=== PATIENT | female | born 1985 | race Caucasian/White ===

== ENCOUNTER 2018-09-27 11:35 | Emergency (ER) | payer OTHER ==
[2018-09-27 11:44] VITALS: BP 105/69; PULSE 84; TEMP 98.6; BMI 21.1
--- NOTE | 2018-09-27 12:22 | PDOC ---
History of Present Illness - General Chief Complaint: Pain Stated Complaint: INJURY,FINGER Time Seen by Provider: 09/27/18 12:14 History Source: Patient Exam Limitations: No Limitations - History of Present Illness Initial Comments: 09/27/18 12:19 33 yr female with pain swelling to her left ring finger. Pain started yesterday unknown trauma no fever, skin intact. took aleve with relief. Severity: reports: mild Upper Extremity Pain Location: left: 4th finger Method of Injury: reports: unknown Past History - Past Medical History Allergies/Adverse Reactions: Allergies Allergy/AdvReac Type Severity Reaction Status Date / Time No Known Allergies Allergy Verified 09/27/18 11:44 Home Medications: Ambulatory Orders NK [No Known Home Medication] 10/05/16 COPD: No - Suicide/Smoking/Psychosocial Hx Smoking History: Never smoked Hx Alcohol Use: No Drug/Substance Use Hx: No Substance Use Type: None *Physical Exam - Vital Signs Last Vital Signs Temp Pulse Resp BP Pulse Ox 98.6 F 84 18 105/69 99 09/27/18 11:40 09/27/18 11:40 09/27/18 11:40 09/27/18 11:40 09/27/18 11:40 - Physical Exam General Appearance: Yes: Nourished, Appropriately Dressed HEENT: positive: EOMI, VERNA Extremity: positive: Normal Capillary Refill, Tender (left 4th digit PIP joint , limited extension due to pain), Swelling, Erythema Integumentary: positive: Normal Color, Dry, Warm Neurologic: positive: Fully Oriented, Alert, Normal Mood/Affect, Normal Response , Motor Strength 5/5 Moderate Sedation - Procedure Monitoring Vital Signs: Procedure Monitoring Vital Signs Temperature 98.6 F 09/27/18 11:40 Pulse Rate 84 09/27/18 11:40 Respiratory Rate 18 09/27/18 11:40 Blood Pressure 105/69 09/27/18 11:40 O2 Sat by Pulse Oximetry (%) 99 09/27/18 11:40 Procedures - Splinting Splint Location: Left: Finger (ring ) Pre-Made Type: metal Post-Proc Neuro Vasc Exam: normal ED Treatment Course - RADIOLOGY Radiology Studies Ordered: Category Date Time Status FINGER(S) LEFT [RAD] Stat Radiology 09/27/18 12:16 Ordered Medical Decision Making - Medical Decision Making 09/27/18 12:20 cc: finger pain, swelling started yesterday morning no fever no chills no PMHX skin intact no evidence of any cellulitus will get xray r/o fracture r/o tenosynovitis 09/27/18 13:06 xray is negative, pt given results and a finger splint placed for comfort. pt instructed to see the orthopedist tomorrow for follow up pt understands the importance as pt may have a tendon injury, sprain that needs careful monitoring. *DC/Admit/Observation/Transfer Diagnosis at time of Disposition: Swollen finger, Tendon injury - Discharge Dispostion Disposition: HOME Condition at time of disposition: Good - Referrals Referrals: Lanie Fair [Primary Care Provider] - Faustino Euceda MD [Staff Physician] - - Patient Instructions Additional Instructions: please follow with the orthopedist tomorrow call in the morning and you were seen in the ER for a swollen finger, may be a tendon issue you must have follow up with the specialist to make sure the finger is not getting worse use the splint for comfort - Post Discharge Activity
[2018-09-27] MEDS ORDERED: NAPROXEN 500 MG TABLET (FP) PO ONE (12:51)
[2018-09-27] MEDS ORDERED: NAPROXEN 500 MG TABLET (FP) ONE (12:52)
== END 2018-09-27 12:54 | disposition home or self-care (01) ==
LOC: JERFT 11:35
PROC: 2W3KX1Z Immobilization of Left Finger using Splint (ICD-10-PCS; principal; 2018-09-27)
DX: S56.40 Unspecified injury of extensor muscle, fascia and tendon of other and unspecified finger at forearm level (principal); M79.89 Other specified soft tissue disorders; X58.XXXA Exposure to other specified factors, initial encounter; Y93.89 Activity, other specified; Y92.89 Other specified places as the place of occurrence of the external cause
CPT/HCPCS: 29131; 73140-TC-LT-FY; 99281-25

== ENCOUNTER 2021-01-17 18:41 | Emergency (ER) | payer BC, OTHER ==
[2021-01-17 19:09] VITALS: TEMP 98.9; BMI 22.7
[2021-01-17] MEDS ORDERED: SODIUM CHLORIDE 1,000 ML IV STA (20:15)
[2021-01-17] MEDS ORDERED: METOCLOPRAMIDE HCL INJECTION 10 MG/2 ML VIAL IVPUSH ONE (20:16)
[2021-01-17 20:49] LABS: BASO % 0.8 % (0-2.0); EOS % 3.4 % (0-4.5); HEMATOCRIT 36.7 % (32.4-45.2); HEMOGLOBIN 12.5 GM/dL (10.7-15.3); MCH 29.4 pg (25.7-33.7); MCHC 34.1 g/dl (32.0-36.0); MEAN CELL VOLUME 86.3 fl (80-96); MEAN PLT VOLUME 9.2 fl (7.5-11.1); MONO % 7.8 % (3.8-10.2); PLATELET COUNT 250 K/MM3 (134-434); RBC 4.25 M/mm3 (3.60-5.2); RDW 13.8 % (11.6-15.6); WHITE BLOOD COUNT 8.8 K/mm3 (4.0-10.0)
[2021-01-17] MEDS ORDERED: METOCLOPRAMIDE HCL INJECTION 10 MG/2 ML VIAL ONE ×2 (20:52)
[2021-01-17 21:09] VITALS: BP 96/61; PULSE 67
[2021-01-17 22:03] LABS: EPI CELLS 10 /uL (0-25.1); HYALINE CASTS 0 /uL (0-3.1); PH,URINE 8.5 (5.0-8.0); URINE APPEARANCE TURBID; URINE BACTERIA 102 /uL (0-1359); URINE BILIRUBIN NEGATIVE (NEGATIVE); URINE COLOR YELLOW; URINE GLUCOSE (UA) NEGATIVE (NEGATIVE); URINE KETONE NEGATIVE (NEGATIVE); URINE LEUK ESTERASE NEGATIVE (NEGATIVE); URINE NITRITE NEGATIVE (NEGATIVE); URINE PROTEIN NEGATIVE (NEGATIVE); URINE RBC 534 /uL (0-23.9); URINE UROBILINOGEN 0.2 mg/dL (0.2-1.0); URINE WBC 21 /uL (0-25.8)
== END 2021-01-17 23:36 | disposition home or self-care (01) ==
LOC: JER 18:41
PROC: 3E033NZ Introduction of Analgesics, Hypnotics, Sedatives into Peripheral Vein, Percutaneous Approach (ICD-10-PCS; principal; 2021-01-17)
PROC: 3E0337Z Introduction of Electrolytic and Water Balance Substance into Peripheral Vein, Percutaneous Approach (ICD-10-PCS; 2021-01-17)
DX: O20.0 Threatened abortion (principal)
CPT/HCPCS: 36415; 76817-TC; 81003; 84702; 85025; 86850; 86900; 86901; 87086; 99285-25